=== PATIENT | male | born 2000 | race Native Hawaiian/Other Pacific Islander ===

== ENCOUNTER 2020-07-04 18:18 | Emergency (ER) | payer OTHER ==
[2020-07-04 18:36] LABS: BILIRUBIN,URINE NEGATIVE (NEGATIVE); GLUCOSE, URINE (UA) NEGATIVE (NEGATIVE); KETONES,URINE (UA) NEGATIVE (NEGATIVE); LEUKOCYTE ESTERASE, URINE MODERATE (NEGATIVE); NITRITE,URINE NEGATIVE (NEGATIVE); OCCULT BLOOD,URINE LARGE (NEGATIVE); PROTEIN,URINE NEGATIVE (NEGATIVE); UROBILINOGEN,URINE 0.2 (NORMAL) E.U./dL (NORMAL)
[2020-07-04 18:38] LABS: CLARITY,URINE HAZY (CLEAR)
[2020-07-04 18:49] LABS: BACTERIA,URINE Few /HPF (None Seen); SQUAMOUS EPITHELIAL CELL,UR NONE SEEN (<= Few)
--- NOTE | 2020-07-04 19:26 | ED Physician Documentation ---
PD HPI BACK PAIN - Stated complaint Stated Complaint: BLOOD IN URINE - Chief complaint Chief Complaint: UTI - History obtained from History obtained from: Patient - Additional information Additional information: He has had right flank pain for about a month. Is worse with motion. Today developed gross hematuria with clots and some discomfort with urination. No history of UTI. No fevers or chills. Review of Systems Ten Systems: 10 systems reviewed and negative Constitutional: denies: Fever, Chills GI: denies: Abdominal Pain, Nausea, Vomiting : reports: Dysuria. denies: Frequency PD PAST MEDICAL HISTORY - Past Medical History Past Medical History: No - Past Surgical History Past Surgical History: No - Present Medications Home Medications: Ambulatory Orders Medication Instructions Recorded Confirmed Levofloxacin [Levaquin] 500 mg PO DAILY #9 tablet 07/04/20 - Allergies Allergies/Adverse Reactions: Allergies Allergy/AdvReac Type Severity Reaction Status Date / Time No Known Drug Allergies Allergy Verified 07/04/20 18:35 - Social History Does the pt smoke?: No Smoking Status: Never smoker Does the pt drink ETOH?: Yes Does the pt have substance abuse?: No - Immunizations Immunizations are current?: Yes PD ED PE NORMAL - Vitals Vital signs reviewed: Yes - General General: Alert and oriented X 3, No acute distress - Respiratory Respiratory: No respiratory distress, Clear bilaterally - Abdomen Abdomen: Normal bowel sounds, Soft, Non tender - Neuro Neuro: Alert and oriented X 3, Normal speech - Psych Psych: Normal mood, Normal affect Results - Vitals Vitals: Vital Signs - 24 hr 07/04/20 07/04/20 07/04/20 18:25 19:48 21:01 Temperature 37.9 C H 37.4 C 37.5 C Heart Rate 87 82 77 Respiratory 18 18 60 H Rate Blood Pressure 151/75 H 139/64 H 132/69 H O2 Saturation 98 100 100 Oxygen O2 Source Room air - Labs Labs: Laboratory Tests 07/04/20 07/04/20 07/04/20 18:21 19:40 19:40 WBC 14.1 H RBC 5.12 Hgb 15.8 Hct 46.5 MCV 90.8 MCH 30.9 MCHC 34.0 RDW 11.7 L Plt Count 266 MPV 10.8 Neut # (Auto) 11.0 H Lymph # (Auto) 2.0 [place] # (Auto) 0.9 Eos # (Auto) 0.1 Baso # (Auto) 0.1 Absolute Nucleated RBC 0.00 Nucleated RBC % 0.0 Sodium 137 Potassium 4.1 Chloride 99 L Carbon Dioxide 26 Anion Gap 12.0 BUN 17 Creatinine 1.0 Estimated GFR (MDRD) 94 Glucose 101 H Calcium 9.6 Total Bilirubin 0.7 AST 19 ALT 20 Alkaline Phosphatase 64 Total Protein 8.0 Albumin 5.0 Globulin 3.0 Albumin/Globulin Ratio 1.7 Lipase 27 Urine Color LT RED Urine Clarity HAZY Urine pH 7.0 Ur Specific [place] 1.010 Urine Protein NEGATIVE Urine Glucose (UA) NEGATIVE Urine Ketones NEGATIVE Urine Occult Blood LARGE H Urine Nitrite NEGATIVE Urine Bilirubin NEGATIVE Urine Urobilinogen 0.2 (NORMAL) Ur Leukocyte Esterase MODERATE H Urine RBC 11-25 H Urine WBC 11-25 H Ur Squamous Epith Cells NONE SEEN Urine Bacteria Few Urine Culture Comments INDICATED PD MEDICAL DECISION MAKING - ED course ED course: 20-year-old gentleman with evidence of pyelonephritis with borderline fever, white count, some right flank pain and infected urine. Worry for infected stone given the gross hematuria but CT negative for same. Declined pain medication but did need a work note. Advised no heavy lifting or weight lifting etc. while on fluoroquinolones. Departure - Departure Disposition: 01 Home, Self Care Clinical Impression: Pyelonephritis Hematuria Qualifiers: Hematuria type: gross Qualified Code(s): R31.0 - Gross hematuria Condition: Stable Record reviewed to determine appropriate education?: Yes Instructions: ED UTI Pyelonephritis Male Prescriptions: Levofloxacin [Levaquin] 500 mg PO DAILY #9 tablet Comments: You were seen today for blood in the urine, the urinalysis is consistent with probably a kidney infection. CT of the abdomen and pelvis to rule out stones was negative. Return if worsening or not improving over the next couple of days, we will call in a few days if urine culture is a resistant organism. [place] Drink plenty of fluids. Forms: Activity restrictions Discharge Date/Time: 07/04/20 21:01
[2020-07-04 19:50] LABS: BASOPHILS # (AUTO) 0.1 10^3/uL (0.0-0.1); BASOPHILS % (AUTO) 0.4 %; EOSINOPHILS # (AUTO) 0.1 10^3/uL (0.0-0.7); EOSINOPHILS % (AUTO) 0.5 %; HGB - HEMOGLOBIN 15.8 g/dL (14.0-18.0); LYMPHOCYTES % (AUTO) 14.3 %; MEAN CORPUSCULAR HEMOGLOBIN 30.9 pg (27.0-31.0); MEAN CORPUSCULAR VOLUME 90.8 fL (80.0-94.0); MEAN PLATELET VOLUME 10.8 fL (7.4-11.4); MONOCYTES # (AUTO) 0.9 10^3/uL (0.0-1.0); MONOCYTES % (AUTO) 6.7 %; NEUTROPHILS % (AUTO) 77.6 %; PLT - PLATELET COUNT 266 10^3/uL (130-450); RED BLOOD COUNT 5.12 10^6/uL (4.70-6.10); RED CELL DISTRIBUTION WIDTH 11.7 % (12.0-15.0); WHITE BLOOD COUNT 14.1 x10^3/uL (4.8-10.8)
[2020-07-04 20:01] LABS: ALBUMIN/GLOBULIN RATIO 1.7 (1.0-2.2); BILIRUBIN,TOTAL 0.7 mg/dL (0.2-1.0); CALCIUM 9.6 mg/dL (8.5-10.3)
--- NOTE | 2020-07-04 20:45 | CT Report ---
PROCEDURE: Abdomen/Pelvis WO INDICATIONS: R flank pain, hematuria TECHNIQUE: Noncontrast 5 mm thick sections acquired from the diaphragms to the symphysis. 5 mm coronal and sagi ttal reformats were then performed. For radiation dose reduction, the following was used: automated exposure control, adjustment of mA and/or kV according to patient size. COMPARISON: None. FINDINGS: Image quality: Excellent. ABDOMEN: Lung bases: Lung bases are clear. Heart size is normal. Solid organs: Liver and spleen are normal in size. Gallbladder is within normal limits Pancreas is normal in contours. No adrenal nodules. Kidneys are normal in size, without hydronephrosis or neph rolithiasis. Peritoneum and bowel: Unenhanced bowel loops demonstrate normal wall thickness and caliber. No free fluid or air. Normal appendix. Nodes and vessels: No retroperitoneal or mesenteric adenopathy by size criteria. Aorta and inferior vena cava are normal in caliber. Miscellaneous: No ventral hernias. PELVIS: Genitourinary: Bladder wall thickness is normal. Miscellaneous: No inguinal hernias or adenopathy. Bones: No suspicious bony lesions. No vertebral body compression fractures. IMPRESSION: 1. No evidence of urinary tract calcification, nor obstruction. 2. Normal appendix. Reviewed by: Cassie Topete MD on 07/04/2020 8:44 PM PDT Approved by: Cassie Topete MD on 07/04/2020 8:44 PM PDT Station ID: [id number]
[2020-07-04] MEDS ORDERED: levoFLOXacin 250 MG TABLET PO STA (20:48)
[2020-07-04 21:02] VITALS: BP 132/69
== END 2020-07-04 21:01 | disposition home or self-care (01) ==
LOC: ED 18:18
DX: N12 Tubulo-interstitial nephritis, not specified as acute or chronic (principal); R31.0 Gross hematuria
CPT/HCPCS: 36415; 74176; 80053; 81001; 83690; 85025; 87086; 87181; 99284; A9270

== ENCOUNTER 2023-09-22 14:33 | Emergency (ER) | payer OTHER ==
[2023-09-22] MEDS ORDERED: ONDANSETRON 4 MG/2 ML VIAL IVP STA (14:45)
[2023-09-22] MEDS ORDERED: SODIUM CHLORIDE 0.9% 1,000 ML IV STA (14:45)
--- NOTE | 2023-09-22 14:46 | ED Physician Documentation ---
History of Present Illness - Stated complaint Stated Complaint: N/V DIZZY - Chief complaint Chief Complaint: Abd Pain - History obtained from History obtained from: Patient - Additonal information Additional information: 23-year-old male generally healthy at baseline, active [employer], presents with nausea vomiting and diarrhea since this morning. He has not been able to tolerate any p.o. and feels like he is getting dehydrated, somewhat dizzy. Thinks he may have had a fever initially but does not feel febrile any longer, no documented fever at home. History to drink electrolyte solution was out tolerance, no other medication tried. No notes in the household is sick but he does have a 2-year-old and a 4-month-old. He believes he may have got sick after eating at [employer] last night, family members ate the same place but different meals. No other known sick contacts. PD PAST MEDICAL HISTORY - Past Medical History Past Medical History: Yes Cardiovascular: None Respiratory: None Neuro: None Endocrine/Autoimmune: None GI: None : None HEENT: None Psych: None Musculoskeletal: None Derm: None - Past Surgical History Past Surgical History: No - Present Medications Home Medications: Ambulatory Orders Medication Instructions Recorded Confirmed Ondansetron Odt [Zofran] 4 mg TL Q6H PRN #10 tablet 09/22/23 - Allergies Allergies/Adverse Reactions: Allergies Allergy/AdvReac Type Severity Reaction Status Date / Time No Known Drug Allergies Allergy Verified 09/22/23 14:37 - Social History Does the pt smoke?: No Smoking Status: Never smoker Does the pt drink ETOH?: Yes Does the pt have substance abuse?: No - Immunizations Immunizations are current?: Yes PD ED PE NORMAL - Vitals Vital signs reviewed: Yes - General General: Alert and oriented X 3, No acute distress, Well developed/nourished - HEENT HEENT: Atraumatic, Moist mucous membranes - Cardiac Cardiac: No murmur, Strong equal pulses, Other (tachycardic) - Respiratory Respiratory: No respiratory distress, Clear bilaterally - Abdomen Abdomen: Normal bowel sounds, Soft, Non tender, Non distended, No organomegaly Results - Vitals Vitals: Vital Signs - 24 hr 09/22/23 14:38 Temperature 36.3 C L Heart Rate 112 H Respiratory 18 Rate Blood Pressure 126/93 H O2 Saturation 99 Oxygen O2 Source Room air - Labs Labs: Laboratory Tests 09/22/23 09/22/23 09/22/23 14:50 14:50 15:20 WBC 15.6 H RBC 5.71 Hgb 17.2 Hct 51.5 MCV 90.2 MCH 30.1 MCHC 33.4 RDW 12.2 Plt Count 264 MPV 10.6 Neut # (Auto) 14.6 H Lymph # (Auto) 0.4 L [place] # (Auto) 0.5 Eos # (Auto) 0.1 Baso # (Auto) 0.0 Absolute Nucleated RBC 0.00 Nucleated RBC % 0.0 Sodium 137 Potassium 4.8 H Chloride 104 Carbon Dioxide 27 Anion Gap 6.0 BUN 21 H Creatinine 1.1 Estimated GFR (MDRD) 82 L Glucose 112 H Calcium 9.6 Total Bilirubin 0.5 AST 21 ALT 30 Alkaline Phosphatase 63 Total Protein 7.4 Albumin 5.0 Globulin 2.4 Albumin/Globulin Ratio 2.1 Lipase 11 Urine Color YELLOW Urine Clarity CLEAR Urine pH 6.0 Ur Specific [place] 1.020 Urine Protein NEGATIVE Urine Glucose (UA) NEGATIVE Urine Ketones NEGATIVE Urine Occult Blood TRACE-INTA Urine Nitrite NEGATIVE Urine Bilirubin NEGATIVE Urine Urobilinogen 0.2 (NORMAL) Ur Leukocyte Esterase NEGATIVE Ur Microscopic Review NOT INDICATED Urine Culture Comments NOT INDICATED PD Medical Decision Making - ED course Complexity details: reviewed results, re-evaluated patient, considered differential, d/w patient ED course: 23-year-old male presents with nausea vomiting diarrhea since this morning as described in HPI. Patient is well-appearing here on physical exam, mildly tachycardic but exam otherwise unremarkable. Patient is not able to tolerate p.o. at this time therefore will place an IV, give the patient a liter of normal saline and 4 mg IV Zofran, for symptom relief. I suspect this is a viral gastroenteritis, possible food poisoning but in any case that should self resolve in the next 24 to 48 hours. Anticipate being able to discharge the patient home with as needed Zofran and supportive measures with clinical improvement within the next 1 to 2 days. Return precautions reviewed w/ pt. Departure - Departure Disposition: 01 Home, Self Care Clinical Impression: Gastroenteritis Condition: Good Instructions: ED Gastroenteritis Viral Prescriptions: Ondansetron Odt [Zofran] 4 mg TL Q6H PRN #10 tablet PRN Reason: Nausea / Vomiting Comments: Your symptoms are likely due to gastroenteritis which can be caused by a virus or by "food poisoning." It usually goes away in 1-2 days on its own in most cases. I have prescribed some nausea tablets for you. Please stick to a very light diet today (clear liquids, maybe crackers or toast if you are feeling better), and then slowly you can resume your regular diet in 1-2 days. If you are having diarrhea, you can take over the counter Immodium prior to your flight tomorrow. You should be able to fly tomorrow as planned, though you may not feel 100% at that point, you should have improvement. [facility] Forms: PCP List
[2023-09-22 14:48] VITALS: BP 126/93
[2023-09-22 14:52] LABS: BASOPHILS % (AUTO) 0.3 %; EOSINOPHILS # (AUTO) 0.1 10^3/uL (0.0-0.7); EOSINOPHILS % (AUTO) 0.4 %; HCT - HEMATOCRIT 51.5 % (42.0-52.0); HGB - HEMOGLOBIN 17.2 g/dL (14.0-18.0); LYMPHOCYTES # (AUTO) 0.4 10^3/uL (1.5-3.5); LYMPHOCYTES % (AUTO) 2.3 %; MEAN CORPUSCULAR HEMOGLOBIN 30.1 pg (27.0-31.0); MEAN CORPUSCULAR HGB CONC 33.4 g/dL (32.0-36.0); MEAN CORPUSCULAR VOLUME 90.2 fL (80.0-94.0); MEAN PLATELET VOLUME 10.6 fL (7.4-11.4); MONOCYTES # (AUTO) 0.5 10^3/uL (0.0-1.0); MONOCYTES % (AUTO) 3.1 %; NEUTROPHILS # (AUTO) 14.6 10^3/uL (1.5-6.6); NEUTROPHILS % (AUTO) 93.6 %; PLT - PLATELET COUNT 264 10^3/uL (130-450); RED BLOOD COUNT 5.71 10^6/uL (4.70-6.10); RED CELL DISTRIBUTION WIDTH 12.2 % (12.0-15.0); WHITE BLOOD COUNT 15.6 x10^3/uL (4.8-10.8)
[2023-09-22 15:08] LABS: ALBUMIN/GLOBULIN RATIO 2.1 (1.0-2.2); BILIRUBIN,TOTAL 0.5 mg/dL (0.2-1.0); CALCIUM 9.6 mg/dL (8.5-10.3); CREATININE 1.1 mg/dL (0.6-1.3); POTASSIUM 4.8 mmol/L (3.5-4.5); TOTAL PROTEIN 7.4 g/dL (6.4-8.9)
[2023-09-22 15:24] LABS: BILIRUBIN,URINE NEGATIVE (NEGATIVE); GLUCOSE, URINE (UA) NEGATIVE (NEGATIVE); KETONES,URINE (UA) NEGATIVE (NEGATIVE); LEUKOCYTE ESTERASE, URINE NEGATIVE (NEGATIVE); NITRITE,URINE NEGATIVE (NEGATIVE); OCCULT BLOOD,URINE TRACE-INTA (NEGATIVE); PROTEIN,URINE NEGATIVE (NEGATIVE); UROBILINOGEN,URINE 0.2 (NORMAL) E.U./dL (NORMAL)
[2023-09-22 15:25] LABS: CLARITY,URINE CLEAR (CLEAR)
[2023-09-22 15:48] VITALS: O2SAT 98
== END 2023-09-22 15:54 | disposition home or self-care (01) ==
LOC: ED 14:33
DX: K52.9 Noninfective gastroenteritis and colitis, unspecified (principal)
CPT/HCPCS: 36415; 80053; 81001; 81003; 83690; 85025; 87086; 96374; 99283